=== PATIENT | female | born 1980 | race American Indian/Alaskan Native ===

== ENCOUNTER 2020-08-04 21:28 | Emergency (ER) | payer MEDICARE ==
[2020-08-04 22:37] VITALS: BP 136/94
--- NOTE | 2020-08-04 23:27 | XRay Report ---
XR chest routine 2V INDICATION / CLINICAL INFORMATION: cough. COMPARISON: None available. FINDINGS: SUPPORT DEVICES: None. HEART /PULMONARY VASCULATURE: No significant abnormality. LUNGS / PLEURA: No significant pulmonary or pleural abnormality. No pneumothorax. ADDITIONAL FINDINGS: No significant additional findings. IMPRESSION: 1. No acute findings. Signer Name: Aramis Mariano MD Signed: 08/04/2020 11:23 PM Workstation Name: [id number]
--- NOTE | 2020-08-04 23:35 | Emergency Department Report ---
- General Chief Complaint: Upper Respiratory Infection Stated Complaint: COLD SX/EMESIS/HEADACHE Source: patient Mode of arrival: Ambulatory Limitations: No Limitations - History of Present Illness Initial Comments: Patient is a 40-year-old -[place] female with a history of HIV and who is on ARV's, history of seizures and asthma who presents to the ED with acute onset persistent nasal and sinus congestion, frontal sinus pressure and headache, persistent dry cough for the last 1 week. Patient states that in the last 3 days she has not been able to sleep because of persistent cough despite taking [id number] medications. Patient denies dizziness, syncope, fever, chills, nausea, vomiting, sore throat, change in vision, abdominal pain, chest pain, shortness of breath, dysuria, urinary frequency and urgency, change in vision or seizures. MD Complaint: cough, rhinorrhea, nasal congestion, sinus pain -: Sudden, week(s) (1) Severity scale (0 -10): 6 Quality: sharp, aching Consistency: constant Improves With: nothing Worsens With: nothing Associated Symptoms: denies other symptoms, headache, rhinorrhea, nasal congestion, cough. denies: fever, chills, myalgias, sore throat, nausea, vomiting, diarrhea, rash, confusion, weight loss, epistaxis, hoarseness, other Treatments Prior to Arrival: none - Related Data Previous Rx's Medication Instructions Recorded Last Taken Type Atovaquone [Mepron] 750 mg PO QAM #30 ml 11/05/14 Unknown Rx Ciprofloxacin HCl [Ciprofloxacin 500 mg PO BID #60 tablet 11/05/14 Unknown Rx TAB] Cyclobenzaprine HCl [Flexeril 5 MG 5 mg PO TID #90 tablet 11/05/14 Unknown Rx TAB] Efavirenz/Emtricit/Tenofovr Df 1 each PO QHS #30 tablet 11/05/14 Unknown Rx [Atripla Tablet] Fluconazole [Diflucan] 400 mg PO DAILY #30 tablet 11/05/14 Unknown Rx Ibuprofen [Motrin 800 MG tab] 800 mg PO Q8H PRN #90 tablet 11/05/14 Unknown Rx Ketorolac [Toradol] 10 mg PO Q4H PRN #60 tablet 11/05/14 Unknown Rx Meclizine [Antivert] 25 mg PO TID PRN #90 tablet 05/28/15 Unknown Rx Megestrol Acetate [Megace] 400 mg PO DAILY #10 ml 11/05/14 Unknown Rx Potassium Chloride [K-Dur] 20 meq PO BID #60 tablet 11/05/14 Unknown Rx Raltegravir Potassium [Isentress] 400 mg PO BID #60 tablet 11/05/14 Unknown Rx Topiramate [Topamax] 50 mg PO Q12HR #60 tablet 11/05/14 Unknown Rx levETIRAcetam [Keppra TAB] 500 mg PO BID #60 tablet 11/05/14 Unknown Rx Benzonatate [Tessalon Perles] 100 mg PO Q8HR #30 capsule 08/04/20 Unknown Rx Butalb/Acetamin/Caff 50-325-40 1 - 2 tab PO Q4H PRN #15 tablet 08/04/20 Unknown Rx [Fioricet 50-325-40] Doxycycline Hyclate 100 mg PO Q12H #20 tablet.dr 08/04/20 Unknown Rx Ibuprofen [Motrin] 600 mg PO Q8H PRN #30 tablet 08/04/20 Unknown Rx methylPREDNISolone [Medrol 4MG 4 mg PO DAILY #21 tab.ds.pk 08/04/20 Unknown Rx DOSEPAK (21 tabs)] Allergies Allergy/AdvReac Type Severity Reaction Status Date / Time No Known Allergies Allergy Unverified 08/04/20 22:13 ED Review of Systems ROS: Stated complaint: COLD SX/EMESIS/HEADACHE Other details as noted in HPI Constitutional: denies: chills, fever Eyes: denies: eye pain, eye discharge, vision change ENT: congestion. denies: ear pain, throat pain Respiratory: cough. denies: shortness of breath, wheezing Cardiovascular: denies: chest pain, palpitations Endocrine: no symptoms reported Gastrointestinal: denies: abdominal pain, nausea, diarrhea Genitourinary: denies: urgency, dysuria, discharge Musculoskeletal: denies: back pain, joint swelling, arthralgia Skin: denies: rash, lesions Neurological: headache. denies: weakness, paresthesias Psychiatric: denies: anxiety, depression Hematological/Lymphatic: denies: easy bleeding, easy bruising ED Past Medical Hx - Past Medical History Hx Congestive Heart Failure: No Hx Diabetes: No Hx Seizures: Yes Hx Asthma: Yes Hx COPD: No Hx HIV: Yes Additional medical history: MENGINTITS - Surgical History Additional Surgical History: BREAST IMPLANTS. ANKLE SURGERY, Right leg, cosmetic surgery to face from dog attack - Social History Smoking Status: Never Smoker Substance Use Type: None - Medications Home Medications: Home Medications Medication Instructions Recorded Confirmed Last Taken Type Atovaquone [Mepron] 750 mg PO QAM #30 ml 11/05/14 Unknown Rx Ciprofloxacin HCl [Ciprofloxacin 500 mg PO BID #60 tablet 11/05/14 Unknown Rx TAB] Cyclobenzaprine HCl [Flexeril 5 MG 5 mg PO TID #90 tablet 11/05/14 Unknown Rx TAB] Efavirenz/Emtricit/Tenofovr Df 1 each PO QHS #30 tablet 11/05/14 Unknown Rx [Atripla Tablet] Fluconazole [Diflucan] 400 mg PO DAILY #30 tablet 11/05/14 Unknown Rx Ibuprofen [Motrin 800 MG tab] 800 mg PO Q8H PRN #90 tablet 11/05/14 Unknown Rx Ketorolac [Toradol] 10 mg PO Q4H PRN #60 tablet 11/05/14 Unknown Rx Meclizine [Antivert] 25 mg PO TID PRN #90 tablet 11/05/14 Unknown Rx Megestrol Acetate [Megace] 400 mg PO DAILY #10 ml 11/05/14 Unknown Rx Potassium Chloride [K-Dur] 20 meq PO BID #60 tablet 11/05/14 Unknown Rx Raltegravir Potassium [Isentress] 400 mg PO BID #60 tablet 11/05/14 Unknown Rx Topiramate [Topamax] 50 mg PO Q12HR #60 tablet 11/05/14 Unknown Rx levETIRAcetam [Keppra TAB] 500 mg PO BID #60 tablet 11/05/14 Unknown Rx Benzonatate [Tessalon Perles] 100 mg PO Q8HR #30 capsule 08/04/20 Unknown Rx Butalb/Acetamin/Caff 50-325-40 1 - 2 tab PO Q4H PRN #15 tablet 08/04/20 Unknown Rx [Fioricet 50-325-40] Doxycycline Hyclate 100 mg PO Q12H #20 tablet.dr 08/04/20 Unknown Rx Ibuprofen [Motrin] 600 mg PO Q8H PRN #30 tablet 08/04/20 Unknown Rx methylPREDNISolone [Medrol 4MG 4 mg PO DAILY #21 tab.ds.pk 08/04/20 Unknown Rx DOSEPAK (21 tabs)] ED Physical Exam - General Limitations: No Limitations General appearance: alert, in no apparent distress - Head Head exam: Present: atraumatic, normocephalic, normal inspection - Eye Eye exam: Present: normal appearance, PERRL, EOMI Pupils: Present: normal accommodation - ENT ENT exam: Present: normal orophraynx, mucous membranes moist, TM's normal bilaterally, normal external ear exam, other (Grossly congested nasal passages) - Neck Neck exam: Present: normal inspection, full ROM - Respiratory Respiratory exam: Present: normal lung sounds bilaterally. Absent: respiratory distress, wheezes, rales, rhonchi, stridor, chest wall tenderness, accessory muscle use, decreased breath sounds, prolonged expiratory - Cardiovascular Cardiovascular Exam: Present: regular rate, normal rhythm, normal heart sounds. Absent: systolic murmur, diastolic murmur, rubs, gallop - GI/Abdominal GI/Abdominal exam: Present: soft, normal bowel sounds. Absent: tenderness, guarding, rebound, hyperactive bowel sounds, hypoactive bowel sounds, organomegaly - Extremities Exam Extremities exam: Present: normal inspection, full ROM, normal capillary refill - Back Exam Back exam: Present: normal inspection, full ROM. Absent: tenderness, CVA tenderness (R), CVA tenderness (L), muscle spasm, paraspinal tenderness, vertebral tenderness - Neurological Exam Neurological exam: Present: alert, oriented X3, CN II-XII intact, normal gait, reflexes normal - Psychiatric Psychiatric exam: Present: normal affect, normal mood - Skin Skin exam: Present: warm, dry, intact, normal color. Absent: rash ED Course Vital Signs 08/04/20 22:11 Temperature 98.5 F Pulse Rate 95 H Respiratory 16 Rate Blood Pressure 136/94 O2 Sat by Pulse 98 Oximetry ED Medical Decision Making - Radiology Data Radiology results: report reviewed, image reviewed Findings [facility] [address] [place] [address] XRay Report Signed Patient: JOSE ANGEL BLUE MR#: [id number] : 1980 Acct:[id number] Age/Sex: 40 / F ADM Date: 08/04/20 Loc: ED Attending Dr: Ordering Physician: SIDDHARTH MONSALVE Date of Service: 08/04/20 Procedure(s): XR chest routine 2V Accession Number(s): [id number] cc: SIDDHARTH MONSALVE Fluoro Time In Minutes: XR chest routine 2V INDICATION / CLINICAL INFORMATION: cough. COMPARISON: None available. FINDINGS: SUPPORT DEVICES: None. HEART /PULMONARY VASCULATURE: No significant abnormality. LUNGS / PLEURA: No significant pulmonary or pleural abnormality. No pneumothorax. ADDITIONAL FINDINGS: No significant additional findings. IMPRESSION: 1. No acute findings. Signer Name: Haley Mariano MD Signed: 08/04/2020 11:23 PM Workstation Name: [id number] Transcribed By: TONNY Dictated By: HALEY MARIANO MD Electronically Authenticated By: HALEY MARIANO MD Signed Date/Time: 08/04/202322 DD/ 22 TD/TT: - Medical Decision Making This is a 40-year-old -[place] female with a history of HIV and who is on ARV's, history of seizures and asthma who presents to the ED with acute onset persistent nasal and sinus congestion, frontal sinus pressure and headache, persistent dry cough for the last 1 week. Patient states that in the last 3 days she has not been able to sleep because of persistent cough despite taking [id number] medications. In the ED, patient is alert and oriented x3 and is not in any distress and is hemodynamically stable. Chest x-ray shows no acute cardiopulmonary abnormalities or pneumonitis although atypical pneumonia given the patient's HIV condition cannot be ruled out. Patient will discharge home on medications based on the physical exam findings. Patient was advised to follow-up with her primary care physician in 5 to 7 days for reevaluation. Patient was advised to return to the ED immediately if symptoms get worse. - Differential Diagnosis Bronchitis; URI; Pneumonia; Sinusitis Critical care attestation.: If time is entered above; I have spent that time in minutes in the direct care of this critically ill patient, excluding procedure time. ED Disposition Clinical Impression: Acute upper respiratory infection Acute bronchitis Qualifiers: Bronchitis organism: other organism Qualified Code(s): J20.8 - Acute bronchitis due to other specified organisms Disposition: DC-01 TO HOME OR SELFCARE Is pt being admited?: No Does the pt Need Aspirin: No Condition: Stable Instructions: Acute Bronchitis (ED), Upper Respiratory Infection, Adult, [id number], Acute Bronchitis, Adult, [id number] Additional Instructions: Chest x-ray shows no acute cardiopulmonary abnormalities or pneumonitis. Take medication with food, drink plenty of fluids and follow-up with your primary care physician in 7 to 10 days for reevaluation. Return to the ED immediately if symptoms get worse. Prescriptions: Doxycycline Hyclate 100 mg PO Q12H #20 tablet.dr Guillen/Acetamin/Caff 50-325-40 [Fioricet 50-325-40] 1 - 2 tab PO Q4H PRN #15 tablet PRN Reason: Headache methylPREDNISolone [Medrol 4MG DOSEPAK (21 tabs)] 4 mg PO DAILY #21 tab.ds.pk Ibuprofen [Motrin] 600 mg PO Q8H PRN #30 tablet PRN Reason: Pain Benzonatate [Tessalon Perles] 100 mg PO Q8HR #30 capsule Referrals: PRIMARY CARE, [Primary Care Provider] - 3-5 Days Time of Disposition: 23:35 Print Language: PORTUGUESE
== END 2020-08-04 23:48 | disposition home or self-care (01) ==
LOC: ED 21:28
DX: J06.9 Acute upper respiratory infection, unspecified (principal); J20.9 Acute bronchitis, unspecified; J45.909 Unspecified asthma, uncomplicated; Z79.899 Other long term (current) drug therapy; Z21 Asymptomatic human immunodeficiency virus [HIV] infection status; Z86.69 Personal history of other diseases of the nervous system and sense organs; Z98.890 Other specified postprocedural states
CPT/HCPCS: 71046